=== PATIENT | female | born 1975 | race Two or more races ===

== ENCOUNTER 2024-12-20 16:28 | Outpatient (AMB) | payer OTHER, SELFPAY ==
--- NOTE | 2024-12-20 16:39 | A.OFFPC_ITS ---
Vital Signs 12/20/24 16:43 Height 5 ft 4 in Weight 186 lb BMI 31.9 BP 158/100 H Blood Pressure Location Lt brachial Position Sitting Intake Visit Reasons: Establish care Saddle Stitcher Required: No Accompanied by: Self / Same As Patient Allergies No Known Allergies Allergy (Verified 12/20/24 17:03) Medication List - Last Reconciled 12/20/24 by Joyce Dinh MD losartan 100 mg PO DAILY Tobacco use date assessed: 12/20/24 Dental Screening Dental Screen Date: 12/20/24 Did you have a dental visit in the last 12 months?: Yes Did you have a dental problem in the last 6 months where you did not have access to dental care?: No Was dental information given to patient?: Patient has dentist HPI HPI Comments History of Present Illness Details The patient is a 49-year-old female presenting with a range of medical concerns including hypertension, acid reflux, anxiety, depression, and suspicion of sleep apnea. She reports a long-standing history of hypertension managed with Losartan 100mg, with recent addition of Amlodipine to aid in blood pressure control. The patient has struggled with untreated depression and anxiety, experiencing symptoms like low energy and excessive sleep. She reports excessive daytime sleepiness, particularly when inactive or driving, and breathing interruptions during sleep, which prompts consideration of sleep apnea. Reported acid reflux has been inadequately controlled, with recent symptoms persisting. Despite efforts to lose weight through dieting, she mentions unexplained weight gain and concerns about potential thyroid issues. The patient has not undergone recent screening tests, including mammography or Pap smears, due to insurance constraints, and has expressed a preference for diagnostic evaluations to be conducted within a clinical setting. [facility] Surgical History History of hand surgery History of Family History Father Alzheimer disease Hypertension Mother Hypertension Social History Housing: House Patient Tobacco Use Status: Never used Tobacco e-Cigarette/Vaping Use: Never Used Second Hand Smoke Exposure: No service: No Current occupational status: employed Current occupational exposures/hazards: No Cognitive needs: No Hearing needs: No Vision needs: Yes Questionnaire PHQ-9 Over the last 2 weeks, how often have you been bothered by any of the following problems? 1. Little interest or pleasure in doing things: several days 2. Feeling down, depressed, or hopeless: not at all 3. Trouble falling or staying asleep, or sleeping too much: several days 4. Feeling tired or having little energy: nearly every day 5. Poor appetite or overeating: not at all 6. Feeling bad about yourself - or that you are a failure or have let yourself or your family down: not at all 7. Trouble concentrating on things, such as reading the newspaper or watching television: not at all 8. Moving or speaking so slowly that other people could have noticed. Or the opposite - being so fidgety or restless that you have been moving around a lot more than usual: not at all 9. Thoughts that you would be better off or of hurting yourself in some way: not at all Total score: 5 Depression Screening Interpretation: Positive Depression Screening Follow-up: Existing condition and Follow-up Visit Requested Depression Screening Done: Yes 83318 - PHQ-9 Billing: Yes Source: Developed by Drs. Adis Proctor, Dilcia Hope, Jeet Beck and colleagues, with an educational martha from [employer]. Thrive Questionnaire Date Thrive assessed: 12/20/24 I am a: Patient What is your living situation today?: I have a place to live, but I am worried about losing it in the future Within the past 12 months, did the food you bought not last and you didn't have the money to get more?: Sometimes True Within the past 12 months, did you worry whether your food would run out before you got money to buy more?: Often true Do you have trouble paying for medicines?: No Do you have trouble getting transportation to medical appointments?: No Do you have trouble paying your heating and electricity bill?: Yes Do you have trouble taking care of your child, family member or friend?: No Do you have trouble with day-to-day activities such as bathing, preparing meals, shopping, managing finances, etc.?: No Are you currently unemployed and looking for a job?: No Are you interested in more education?: I choose not to answer this question Please select the resources that you would like help with: None Currently or been in a relationship where the following occur: No concerns reported THRIVE Score: 4 AUDIT C Alcohol Use Questionnaire (AUDIT-C) 1. How often do you have a drink containing alcohol?: 2-4 times a month 2. How many drinks containing alcohol do you have on a typical day when you are drinking?: 1 or 2 3. How often do you have six or more drinks on one occasion?: Less than monthly Total Score: 3 PADMINI-7 AMB Questionnaire PADMINI-7 Date PADMINI - 7 assessed: 12/20/24 Feeling nervous, anxious, or on edge: 3 = Nearly every day Not being able to stop or control worryin = Nearly every day Worrying too much about different things: 3 = Nearly every day Trouble relaxin = Several days Being so restless that it is hard to sit still: 0 = Not at all Becoming easily annoyed or irritable: 3 = Nearly every day Feeling afraid as if something awful might happen: 3 = Nearly every day Total PADMINI-7 score (0-4 normal; 5-9 mild; 10-14 moderate; 15-21 severe): 16 Source: Developed by Drs. Aids Proctor, Dilcia Hope, Jeet Beck and colleagues, with an educational martha from [employer]. PADMINI-7 Assessment Billing PADMINI-7 Assessment Tool: PADMINI-7 Assessment 42404 Review of Systems Const All systems reviewed & are unremarkable except as noted in HPI and below Card Denies chest pain at rest, Denies chest pain with activity, Denies edema, Denies irregular heart rhythm, Denies claudication, Denies dyspnea, Denies dyspnea on exertion, Denies orthopnea, Denies paroxysmal nocturnal dyspnea and Denies slow heart rate Resp Denies cough, Denies dyspnea and Denies dyspnea on exertion GI Denies abdominal pain, Denies change in bowel habits, Denies excessive flatus, Denies nausea and Denies vomiting Denies urinary incontinence, Denies urinary hesitancy and Denies urinary urgency Physical exam (Primary Care) Vital Signs: Last Vital Signs BP 158/100 H 12/20/24 16:43 BMI result Body Mass Index 31.9 BMI Assessment/Plan discussion: High BMI High, discussed plan: lifestyle, weight reduction, dietary and physical activity Tobacco/Smoking Status: Tobacco use Status Tobacco use date assessed 12/20/24 12/20/24 16:50 Patient Tobacco Use Status Never used Tobacco 12/20/24 16:50 e-Cigarette/Vaping Use Never Used 12/20/24 16:50 PHQ-9: PHQ-9 Score PHQ-9: Total score 5 12/20/24 16:50 Depression Screening Interpretation: Positive Depression Screening Follow-up: Existing condition and Follow-up Visit Requested Thrive Assessment: Date of Thrive Assessment Date Thrive assessed 12/20/24 12/20/24 16:41 Currently or been in a relationship where the following occur: No concerns reported Resp Effort & Inspection: normal respiratory effort Auscultation: clear to auscultation bilaterally Cardio Jugular venous distension: no JVD Rate: regular rate Rhythm: regular rhythm Heart sounds: S1 normal heart sound present and S2 normal heart sound present Neuro General: no focal motor deficits Extrem General: Yes full ROM Coding Level of Care Code New Pt Level 4 (35180) Complex EM visit Add On G2211 Diagnoses Essential hypertension I10 Mild recurrent major depression F33.0 PADMINI (generalized anxiety disorder) F41.1 Class 1 obesity with body mass index (BMI) of 31.0 to 31.9 in adult E66.811; Z68.31 Chronic GERD K21.9 Daytime somnolence R40.0 Additional Codes PHQ-9 - 60349 - PHQ-9 Billing: Yes ([id number]) PADMINI-7 Assessment Billing - PADMINI-7 Assessment Tool: PAMDINI-7 Assessment 20654 ([id number]) Time Spent (min) 25 Assessment & Plan Assessment & Plan (1) Essential hypertension: Code(s): I10 - Essential (primary) hypertension Category: Medical (2) Mild recurrent major depression: Code(s): F33.0 - Major depressive disorder, recurrent, mild Category: Medical (3) PADMINI (generalized anxiety disorder): Code(s): F41.1 - Generalized anxiety disorder Category: Medical (4) Class 1 obesity with body mass index (BMI) of 31.0 to 31.9 in adult: Code(s): E66.811 - Obesity, class 1; Z68.31 - Body mass index [BMI] 31.0-31.9, adult Category: Medical (5) Chronic GERD: Code(s): K21.9 - Gastro-esophageal reflux disease without esophagitis Category: Medical (6) Daytime somnolence: Code(s): R40.0 - Somnolence Category: Medical Plan Amlodipine is added alongside existing Losartan for comprehensive blood pressure management, and we will assess her response through mid-week pressure checks. I plan to initiate acid reflux treatment and have arranged for a sleep study to assess potential sleep apnea. Lab work was ordered to evaluate thyroid, cholesterol, and comprehensive metabolic health, considering unexplained weight gain and family history. CRC screening through Cologuard and catch-up mammography and Pap smear will be implemented when she is scheduled and facilitated. Future visits will involve revisiting mental health management and weight control strategies. Patient was informed and verbally consented to the use of an ambient scribe for clinic note documentation during this visit. I discussed the initiation of Amlodipine to aid in hypertension management due to her current reading and the addition of reflux treatment to better manage gastric symptoms. The benefit of a sleep study for her reported sleep disturbances was discussed at length, and the potential use of CPAP if apnea is diagnosed was explained. Lab investigations were outlined, and the rationale for thyroid testing given her weight concerns was provided. Colorectal cancer screening via Cologuard was described, alongside the need for future mammography and Pap smear examinations when feasible. I emphasized regular follow-up for ongoing management. Orders: Orders RT home sleep study Today R40.0 - Somnolence Comprehensive [place]. Panel Fast Today E66.811 - Obesity, class 1, Z68.31 - Body mass index [BMI] 31.0-31.9, adult Thyroid Stimulating Hormone Today E66.811 - Obesity, class 1, Z68.31 - Body mass index [BMI] 31.0-31.9, adult MM tomosynthesis screening BI Today Z12.31 - Encounter for screening mammogram for malignant neoplasm of breast Lipid Panel Today E66.811 - Obesity, class 1, E78.5 - Hyperlipidemia, unspecified, Z68.31 - Body mass index [BMI] 31.0-31.9, adult Complete Blood Count Auto Diff Today E66.811 - Obesity, class 1, Z68.31 - Body mass index [BMI] 31.0-31.9, adult Referrals Counseling Referral F33.0 - Major depressive disorder, recurrent, mild, F41.1 - Generalized anxiety disorder [employer] Referral Z12.4 - Encounter for screening for malignant neoplasm of cervix Open Access Screening Colonoscopy Referral Z12.12 - Encounter for screening for malignant neoplasm of rectum Medications: New amlodipine 2.5 mg PO DAILY 90 days 90 tabs 1RF omeprazole 20 mg PO DAILY 90 days 90 caps 1RF Patient Instructions: - Take Losartan and Amlodipine daily as prescribed for blood pressure management. - Follow dietary recommendations outlined for acid reflux. - Call to schedule a sleep study and complete Cologuard once provided details. - Attend blood draw fasting for all pre-arranged lab tests. - Follow guidelines for mental health assessment and follow-up at check-ins. - Arrange appointments for mammography, Pap smear, and any further consultations as insurance becomes available. - Maintain an activity and diet-based plan for weight management.
[2024-12-20 16:43] VITALS: BP 158/100; BMI 31.9
--- OUTSIDE RECORDS SUMMARY | 2024-12-20 18:18 | XMS_ITS | Patient Health Record ---
Author Organization [facility] Address [address] [place], [place] [id number] Care Team Providers Care Machine Stacker Name Role Phone No, PCP Primary Care Provider Unavailabl e [facility], [facility] Unavailable [phone] Reason For Referral No Information Plan Of Treatment No Information Insurance Providers Payer Name Payer Address Payer Phone Subscriber Number Group Number Insured Name Patient Relationship to Insured Coverage Start Date Coverage End Date [place] Medicaid Standard [address] [place] [address] [id number] Katelynn Rivera Self - patient is the insured 4
== END 2024-12-20 17:15 | disposition home or self-care (01) ==
LOC: HO.HMCH 16:29
PROVIDERS: PCP Internal Medicine; Visit Provider Internal Medicine
DX: I10 Essential (primary) hypertension (principal); F33.0 Major depressive disorder, recurrent, mild; F41.1 Generalized anxiety disorder; E66.811 Obesity, class 1; Z68.31 Body mass index [BMI] 31.0-31.9, adult; K21.9 Gastro-esophageal reflux disease without esophagitis; R40.0 Somnolence

== ENCOUNTER → 2024-12-20 16:28 | Outpatient (BNVA) | payer OTHER, SELFPAY | PROVIDERS: PCP Internal Medicine; Visit Provider Internal Medicine | DX: I10 Essential (primary) hypertension (principal); K21.9 Gastro-esophageal reflux disease without esophagitis; F33.0 Major depressive disorder, recurrent, mild; F41.1 Generalized anxiety disorder; R40.0 Somnolence; E66.811 Obesity, class 1; Z68.31 Body mass index [BMI] 31.0-31.9, adult; Z79.899 Other long term (current) drug therapy | CPT/HCPCS: 96127; 99202 ==

== ENCOUNTER 2025-01-09 08:16 | Outpatient (REF) | payer OTHER, SELFPAY ==
--- OUTSIDE RECORDS SUMMARY | 2025-01-09 08:32 | XMS_ITS | Patient Health Record ---
Author Organization [facility] Address [address] [place], [place] [id number] Care Team Providers Care Medical Appointment Scheduler Name Role Phone NO, PCP Primary Care Provider [phone] [facility], [facility] Unavailable [phone] Reason For Referral No Information Plan Of Treatment No Information Insurance Providers Payer Name Payer Address Payer Phone Subscriber Number Group Number Insured Name Patient Relationship to Insured Coverage Start Date Coverage End Date [place] Medicaid Standard [address] [place] [address] [phone] [id number] Katelynn Rivera Self - patient is the insured 4
[2025-01-09 08:35] LABS: MANUAL DIFF FLAG NO
[2025-01-09 09:06] LABS: Basophils Absolute Auto 0.1 X10*3/uL (0.0-0.2); Eosinophils Absolute Auto 0.2 X10*3/uL (0.0-0.4); Eosinophils Percent Auto 2.3 % (0-4); Hematocrit 35.6 % (37.0-47.0); Hemoglobin 12.2 g/dl (12.0-16.0); Imm Gran Abs Auto 0.02 X10*3/uL (0.00-0.03); Imm Gran Pct Auto 0.3 % (0.0-0.4); Lymphocytes Absolute Auto 3.9 X10*3/uL (1.2-4.9); Lymphocytes Percent Auto 55.8 % (20-40); Mean Corpuscular HGB Conc 34.3 g/dl (31.0-35.0); Mean Corpuscular Hemoglobin 28.8 pg (27.0-33.0); Mean Platelet Volume 9.5 fL (9.4-12.3); Monocytes Absolute Auto 0.6 X10*3/uL (0.1-1.2); Monocytes Percent Auto 8.1 % (2-11); Neutrophils Absolute Auto 2.3 x10*3/uL (2.0-8.3); Neutrophils Percent Auto 32.5 % (45-73); Platelet Count 314 X10*3/uL (160-400); Red Blood Count 4.24 X10*6/uL (4.20-5.50); Red Cell Distribution Width 12.4 % (11.0-16.0)
[2025-01-09 10:00] LABS: Alanine Aminotransferase 34 U/L (0-31); Albumin Level 4.7 g/dL (3.5-5.0); Alkaline Phosphatase 74 U/L (39-117); Anion Gap 12 (12-20); Aspartate Amino Transferase 32 U/L (5-31); Bilirubin Total 0.4 mg/dL (0.0-1.0); Blood Urea Nitrogen 16 mg/dL (9-16); Calcium 9.2 mg/dL (8.4-10.2); Carbon Dioxide 28 mmol/L (22-29); Chloride 108 mmol/L (96-108); Cholesterol 177 mg/dL (<200); Estimated Glomerular Filt Rate > 60; Glucose Fasting 91 mg/dL (60-99); HDL Cholesterol 58 mg/dL (>40); LDL Cholesterol Calculated 108 mg/dL (<100); Sodium 144 mmol/L (135-145); Total Protein 7.7 g/dL (6.5-8.0); Triglycerides 58 mg/dL (<150)
[2025-01-09 10:19] LABS: Thyroid Stimulating Hormone 2.31 uIU/mL (0.32-4.0)
== END 2025-01-09 08:17 | disposition home or self-care (01) ==
LOC: HO.LAB 08:16
PROVIDERS: PCP Internal Medicine; Visit Provider Internal Medicine
DX: E66.811 Obesity, class 1 (principal); Z68.31 Body mass index [BMI] 31.0-31.9, adult; E78.5 Hyperlipidemia, unspecified
CPT/HCPCS: 36415; 80053; 80061; 84443; 85025

== ENCOUNTER 2025-02-20 14:43 | Outpatient (REF) | payer OTHER, SELFPAY ==
--- OUTSIDE RECORDS SUMMARY | 2025-02-20 15:09 | XMS_ITS | Patient Health Record ---
Author Organization [facility] Address [address], [place] [id number] Care Team Providers Care Housing Management Officer Name Role Phone NO, PCP Primary Care Provider [phone] [facility], [facility] Unavailable [phone] Reason For Referral No Information Plan Of Treatment No Information Insurance Providers Payer Name Payer Address Payer Phone Subscriber Number Group Number Insured Name Patient Relationship to Insured Coverage Start Date Coverage End Date [place] Medicaid Standard [address] [place] [address] [id number] Katelynn Rivera Self - patient is the insured 4
--- OUTSIDE RECORDS SUMMARY | 2025-02-20 15:09 | XMS_ITS | Clinical Summary ---
Author Organization [facility] Address [address] [place] [address] Phone Care Team Providers Care Shove Up Name Role Phone Physician, No Pcp Primary Care Provider Unavaila ble Allergies No known active allergies Medications methocarbamoL (ROBAXIN) 750 mg tablet Take 1 tablet (750 mg total) by mouth 4 (four) times a day. 12 each 09/02/2024 Active Active Problems No known active problems Social History Tobacco Use Types Packs/Day Years Used Date Smoking Tobacco: Never Smokeless Tobacco: Never Alcohol Use Standard Drinks/Week Comments Yes 0 (1 standard drink = 0.6 oz pur e alcohol) Comments Unknown Sex and Gender Information Value Date Recorded Sex Assigned at Female 09/02/2024 6:38 AM EST Legal Sex Female 12:24 AM EST Gender Identity Female 09/02/2024 6:38 AM EST Sexual Orientation Not on file Obstetrics History Last Filed Vital Signs Vital Sign Reading Time Taken Comments Blood Pressure 136/99 09/02/2024 9:07 AM EST Pulse 65 09/02/2024 9:07 AM EST Temperature 36.4 C (97.5 F) 09/02/2024 9:07 AM EST Respiratory Rate 18 09/02/2024 9:07 AM EST Oxygen Saturation 100% 09/02/2024 9:07 AM EST Inhaled Oxygen Concentration - - Weight 77.1 kg (170 lb) 09/02/2024 6:58 AM EST Height 157.5 cm (5' 2 ) 09/02/2024 6:58 AM EST Body Mass Index 31.09 09/02/2024 6:58 AM EST Plan of Treatment Health Maintenance Due Date Last Done Comments Breast Cancer Screening 1977 DTaP,Tdap,and Td Vaccines (1 - Tdap) 1996 Hepatitis B Vaccines (1 of 3 - 19+ 3-dose series) 1996 Cervical Cancer Screening: P ap Smear 1998 Colorectal Cancer Screening: Colonoscopy 06/20/2022 HIV Screening 06/20/2022 Hepatitis C Screening 06/20/2022 Social Influencers of Health Screening 06/20/2022 COVID-19 Vaccine (1 - 2023-2 5 season) 2024 Depression Screening 07/18/2024 Influenza Vaccine (#1) 2025 HIB Vaccines Aged Out No longer eligi ble based on patient's age to complete this topic HPV Vaccines Aged Out No longer eligi ble based on patient's age to complete this topic Hepatitis A Vaccines Aged Out No long er eligible based on patient's age to complete this topic IPV Vaccines Aged Out No longer eligi ble based on patient's age to complete this topic MMR Vaccines Aged Out No longer eligi ble based on patient's age to complete this topic Meningococcal ACWY Vaccine Aged Out N o longer eligible based on patient's age to complete this topic Meningococcal B Vaccine Aged Out No l onger eligible based on patient's age to complete this topic Pneumococcal Vaccine: Pediat rics (0 to 5 Years) and At-Risk Patients (6 to 49 Years) Aged Out No longer eligible b ased on patient's age to complete this topic RSV Immunization Patients Un kamala 20 months Aged Out No longer eligible b ased on patient's age to complete this topic Varicella Vaccines Aged Out No longer eligible based on patient's age to complete this topic Insurance [employer] Care Teams Shove Up Relationship Specialty Start Date End Date Physician, No Pcp PCP - General 09/02/24
== END 2025-02-20 14:44 | disposition home or self-care (01) ==
LOC: HO.MAMMO 14:43
PROVIDERS: PCP Internal Medicine; Visit Provider Internal Medicine
DX: Z12.31 Encounter for screening mammogram for malignant neoplasm of breast (principal)
CPT/HCPCS: 77063; 77067

== ENCOUNTER → 2025-02-20 15:00 | Outpatient (BNV) | payer OTHER, SELFPAY | PROVIDERS: PCP Internal Medicine; Visit Provider Internal Medicine | DX: Z12.31 Encounter for screening mammogram for malignant neoplasm of breast (principal) | CPT/HCPCS: 77063; 77067 ==

== ENCOUNTER 2025-04-25 12:37 | Outpatient (AMB) | payer OTHER, SELFPAY ==
[2025-04-25 12:42] VITALS: BP 140/100; PULSE 95; RESP 18; TEMP 36.3; O2SAT 97; BMI 32.5
--- NOTE | 2025-04-25 12:42 | MHC.PC.OV ---
Vital Signs 04/25/25 12:42 Height 5 ft 4 in Weight 189 lb 2 oz BMI 32.5 BP 140/100 H Blood Pressure Location Lt brachial Position Sitting Respiration 18 Pulse 95 Pulse Source Pulse Oximeter Temp 97.3 F Temp Source Temporal Artery Scan Pulse Oximetry (%) 97 Oxygen Delivery Method Room Air Intake Visit Reasons: discuss sleep apnea Pet Caretaker Required: No Accompanied by: Self / Same As Patient Allergies No Known Allergies Allergy (Verified 04/25/25 12:52) Medication List - Last Reconciled 04/25/25 by Joyce Dinh MD amlodipine 2.5 mg PO DAILY 90 days losartan 100 mg PO DAILY omeprazole 20 mg PO DAILY 90 days Tobacco use date assessed: 04/25/25 Dental Screening Dental Screen Date: 04/25/25 Did you have a dental visit in the last 12 months?: No Did you have a dental problem in the last 6 months where you did not have access to dental care?: No Was dental information given to patient?: No HPI HPI Comments History of Present Illness Details The patient is a 49-year-old female presenting for management of hypertension and evaluation of sleep apnea. The patient has a history of essential hypertension, currently managed with losartan and amlodipine. Her blood pressure was recorded at 141 mmHg during the visit. The patient is advised to monitor her blood pressure regularly and follow up in three weeks. The patient reports symptoms suggestive of sleep apnea, including falling asleep in public places when inactive. She has been referred to sleep medicine for further evaluation and management. The patient has a history of depression, for which she is currently receiving therapy. She reports hair loss, which she associates with a previous depressive episode in 2020. Laboratory tests indicated transaminitis, and repeat liver function tests have been ordered. [facility] Surgical History History of hand surgery History of Family History Father Alzheimer disease Hypertension Mother Hypertension Social History Housing: House Patient Tobacco Use Status: Never used Tobacco e-Cigarette/Vaping Use: Never Used Second Hand Smoke Exposure: No service: No Current occupational status: employed Current occupational exposures/hazards: No Cognitive needs: No Hearing needs: No Vision needs: Yes Questionnaire PHQ-9 Over the last 2 weeks, how often have you been bothered by any of the following problems? 1. Little interest or pleasure in doing things: nearly every day 2. Feeling down, depressed, or hopeless: more than half the days 3. Trouble falling or staying asleep, or sleeping too much: several days 4. Feeling tired or having little energy: nearly every day 5. Poor appetite or overeating: several days 6. Feeling bad about yourself - or that you are a failure or have let yourself or your family down: several days 7. Trouble concentrating on things, such as reading the newspaper or watching television: nearly every day 8. Moving or speaking so slowly that other people could have noticed. Or the opposite - being so fidgety or restless that you have been moving around a lot more than usual: several days 9. Thoughts that you would be better off or of hurting yourself in some way: not at all Total score: 15 Depression Screening Interpretation: Positive (no suicidal thoughts) Depression Screening Follow-up: Existing condition, Community Mental Health Worker F/U and Follow-up Visit Requested Depression Screening Done: Yes 36716 - PHQ-9 Billing: Yes Source: Developed by Drs. Adis Proctor, Dilcia Hope, Jeet Beck and colleagues, with an educational martha from [employer]. Thrive Questionnaire Date Thrive assessed: 12/14/24 I am a: Patient What is your living situation today?: I have a place to live, but I am worried about losing it in the future Within the past 12 months, did the food you bought not last and you didn't have the money to get more?: Sometimes True Within the past 12 months, did you worry whether your food would run out before you got money to buy more?: Often true Do you have trouble paying for medicines?: No Do you have trouble getting transportation to medical appointments?: No Do you have trouble paying your heating and electricity bill?: Yes Do you have trouble taking care of your child, family member or friend?: No Do you have trouble with day-to-day activities such as bathing, preparing meals, shopping, managing finances, etc.?: No Are you currently unemployed and looking for a job?: No Are you interested in more education?: I choose not to answer this question Currently or been in a relationship where the following occur: I choose not to answer THRIVE Score: 4 AUDIT C Alcohol Use Questionnaire (AUDIT-C) 1. How often do you have a drink containing alcohol?: Monthly or less 2. How many drinks containing alcohol do you have on a typical day when you are drinking?: 1 or 2 3. How often do you have six or more drinks on one occasion?: Never Total Score: 1 Score Reviewed/Action Taken: No PADMINI-7 AMB Questionnaire PADMINI-7 Date PADMINI - 7 assessed: 12/20/24 Source: Developed by Drs. Adis Proctor, Dilcia Hope, Jeet Beck and colleagues, with an educational martah from [employer]. Review of Systems Const All systems reviewed & are unremarkable except as noted in HPI and below Card Denies chest pain at rest, Denies chest pain with activity, Denies edema, Denies irregular heart rhythm, Denies claudication, Denies dyspnea, Denies dyspnea on exertion, Denies orthopnea, Denies paroxysmal nocturnal dyspnea and Denies slow heart rate Resp Denies cough, Denies dyspnea and Denies dyspnea on exertion GI Denies abdominal pain, Denies change in bowel habits, Denies excessive flatus, Denies nausea and Denies vomiting Denies urinary incontinence, Denies urinary hesitancy and Denies urinary urgency Neuro Denies lack of coordination Physical exam (Primary Care) Vital Signs: Last Vital Signs Temp 97.3 F 04/25/25 12:42 Pulse 95 04/25/25 12:42 Resp 18 04/25/25 12:42 BP 140/100 H 04/25/25 12:42 Pulse Ox 97 04/25/25 12:42 Oxygen Delivery Method Room Air 04/25/25 12:42 BMI result Body Mass Index 32.5 BMI Assessment/Plan discussion: High BMI High, discussed plan: lifestyle, weight reduction, dietary and physical activity Tobacco/Smoking Status: Tobacco use Status Tobacco use date assessed 04/25/25 04/25/25 12:50 Patient Tobacco Use Status Never used Tobacco 04/25/25 12:50 e-Cigarette/Vaping Use Never Used 04/25/25 12:50 PHQ-9: PHQ-9 Score PHQ-9: Total score 15 04/25/25 12:50 Depression Screening Interpretation: Positive (no suicidal thoughts) Depression Screening Follow-up: Existing condition, Community Mental Health Worker F/U and Follow-up Visit Requested Thrive Assessment: Date of Thrive Assessment Date Thrive assessed 12/14/24 04/25/25 12:50 Currently or been in a relationship where the following occur: I choose not to answer Resp Effort & Inspection: normal respiratory effort Auscultation: clear to auscultation bilaterally Cardio Jugular venous distension: no JVD Rate: regular rate Rhythm: regular rhythm Heart sounds: S1 normal heart sound present and S2 normal heart sound present Extrem General: Yes full ROM Coding Level of Care Code Est Pt Level 4 (36267) Complex EM visit Add On G2211 Diagnoses Mild recurrent major depression F33.0 Essential hypertension I10 Chronic GERD K21.9 Transaminitis R74.01 Daytime somnolence R40.0 Hair loss L65.9 Additional Codes PHQ-9 - 98511 - PHQ-9 Billing: Yes ([id number]) Time Spent (min) 21 Assessment & Plan Assessment & Plan (1) Mild recurrent major depression: Code(s): F33.0 - Major depressive disorder, recurrent, mild Category: Medical (2) Essential hypertension: Code(s): I10 - Essential (primary) hypertension Category: Medical (3) Chronic GERD: Code(s): K21.9 - Gastro-esophageal reflux disease without esophagitis Category: Medical (4) Transaminitis: Code(s): R74.01 - Elevation of levels of liver transaminase levels Category: Medical (5) Daytime somnolence: Code(s): R40.0 - Somnolence Category: Medical (6) Hair loss: Code(s): L65.9 - Nonscarring hair loss, unspecified Category: Medical Plan Plan Patient was informed and verbally consented to the use of an ambient scribe for clinic note documentation during this visit. 1. Essential Hypertension The patient's blood pressure is currently managed with losartan and amlodipine, with a recent reading of 141 mmHg. She is advised to monitor her blood pressure regularly and follow up in three weeks to assess the effectiveness of the current regimen. 2. Depression The patient is currently receiving therapy for depression and reports associated hair loss, which she links to a previous depressive episode. 3. Sleep Apnea The patient reports symptoms suggestive of sleep apnea, such as falling asleep in public places when inactive. She has been referred to sleep medicine for further evaluation and management. 4. Transaminitis Laboratory tests indicated transaminitis, and repeat liver function tests have been ordered to monitor the condition. Orders: Orders Liver Panel Today R74.01 - Elevation of levels of liver transaminase levels Hepatitis A,B,C Profile Today R74.01 - Elevation of levels of liver transaminase levels Thyroid Stimulating Hormone Today L65.9 - Nonscarring hair loss, unspecified Gamma Glutamyl Transpeptidase Today R74.01 - Elevation of levels of liver transaminase levels Referrals Sleep Medicine Referral R40.0 - Somnolence Dermatology Referral L65.9 - Nonscarring hair loss, unspecified Medications: New amlodipine 5 mg PO DAILY 90 tabs 1RF 90 days Discontinued amlodipine Discontinued Reason: Patient Completed Course 2.5 mg PO DAILY 90 days 90 tabs 1RF
== END 2025-04-25 13:04 | disposition home or self-care (01) ==
LOC: HO.HMCH 12:38
PROVIDERS: PCP Internal Medicine; Visit Provider Internal Medicine
DX: F33.0 Major depressive disorder, recurrent, mild (principal); I10 Essential (primary) hypertension; K21.9 Gastro-esophageal reflux disease without esophagitis; R74.01 Elevation of levels of liver transaminase levels; R40.0 Somnolence; L65.9 Nonscarring hair loss, unspecified

== ENCOUNTER → 2025-04-25 12:37 | Outpatient (BNVA) | payer OTHER, SELFPAY | PROVIDERS: PCP Internal Medicine; Visit Provider Internal Medicine | DX: I10 Essential (primary) hypertension (principal); G47.30 Sleep apnea, unspecified; F33.0 Major depressive disorder, recurrent, mild; K21.9 Gastro-esophageal reflux disease without esophagitis; R74.01 Elevation of levels of liver transaminase levels; R40.0 Somnolence; L65.9 Nonscarring hair loss, unspecified | CPT/HCPCS: 96127; 99212 ==

== ENCOUNTER 2025-05-03 09:18 | Outpatient (REF) | payer OTHER, SELFPAY ==
[2025-05-03 12:40] LABS: Thyroid Stimulating Hormone 2.51 uIU/mL (0.32-4.0)
[2025-05-03 12:57] LABS: Alanine Aminotransferase 36 U/L (0-31); Albumin Level 4.9 g/dL (3.5-5.0); Alkaline Phosphatase 82 U/L (39-117); Aspartate Amino Transferase 29 U/L (5-31); Total Protein 8.1 g/dL (6.5-8.0)
[2025-05-03 15:18] LABS: Gamma Glutamyl Transpeptidase 81 U/L (7-33)
[2025-05-04 09:35] LABS: HBS Num1 36.75 mIU/mL (0-7.99); HBc Num1 0.05 S/CO (0.00-0.79); HBsAGNum1 0.50 S/CO (0.00-0.99); Hepatitis A Antibody IgM 0.22 Index (0-0.79); Hepatitis B Surface Antigen Negative (Negative); ~HepC Num1 0.14 S/CO (0.00-0.79); ~Hepatitis A Antibody IgM Nonreactive (Nonreactive); ~Hepatitis B Surface Antibody REACTIVE (Nonreactive); ~Hepatitis C Antibody Nonreactive (Nonreactive)
== END 2025-05-03 09:19 | disposition home or self-care (01) ==
LOC: HO.LAB 09:18
PROVIDERS: PCP Internal Medicine; Visit Provider Internal Medicine
DX: R74.01 Elevation of levels of liver transaminase levels (principal); L65.9 Nonscarring hair loss, unspecified; Z11.59 Encounter for screening for other viral diseases
CPT/HCPCS: 36415; 80076; 82977; 84443; 86704; 86706; 86709; 86803; 87340

== ENCOUNTER → 2025-05-16 14:53 | Outpatient (BNVA) | payer OTHER, SELFPAY | PROVIDERS: PCP Internal Medicine | DX: Z01.30 Encounter for examination of blood pressure without abnormal findings (principal) | CPT/HCPCS: 99211 ==

== ENCOUNTER 2025-05-20 14:13 | Outpatient (AMB) | payer OTHER, SELFPAY ==
[2025-05-20 14:35] VITALS: BP 118/60; PULSE 70; RESP 18; TEMP 36.3; O2SAT 100; BMI 32.0
--- NOTE | 2025-05-20 14:35 | A.OFFPC_ITS ---
Vital Signs 05/20/25 14:35 Height 5 ft 4 in Weight 186 lb 8 oz BMI 32.0 BP 118/60 Blood Pressure Location Lt brachial Position Sitting Respiration 18 Pulse 70 Pulse Source Pulse Oximeter Temp 97.3 F Temp Source Temporal Artery Scan Pulse Oximetry (%) 100 Intake Visit Reasons: physical exam Manager Mission Required: No Accompanied by: Self / Same As Patient Allergies No Known Allergies Allergy (Verified 05/20/25 15:16) Medication List - Last Reconciled 05/20/25 by Joyce Dinh MD amlodipine 5 mg PO DAILY 90 days losartan 100 mg PO DAILY omeprazole 20 mg PO DAILY 90 days Tobacco use date assessed: 05/20/25 Dental Screening Dental Screen Date: 05/20/25 Did you have a dental visit in the last 12 months?: Yes Did you have a dental problem in the last 6 months where you did not have access to dental care?: No Was dental information given to patient?: Patient has dentist HPI HPI Comments History of Present Illness Details The patient is a 49-year-old female presenting for an annual physical exam. Her last tetanus vaccine was administered more than 10 years ago. She has a history of hypertension, for which she is prescribed medication, and reports having a high reading on one occasion, although her current reading is normal. Review of prior labs reveals good cholesterol, normal thyroid function on two occasions, and a negative hepatitis panel with immunity to Hepatitis B from vaccination. A possibility of fatty liver has been noted. The patient is due for a colonoscopy. [facility] Surgical History History of hand surgery History of Family History (Updated 05/20/25 @ 15:23 by Joyce Dinh MD) Father Alzheimer disease Hypertension Gastric cancer Mother Hypertension Social History Housing: House Patient Tobacco Use Status: Never used Tobacco e-Cigarette/Vaping Use: Never Used Second Hand Smoke Exposure: No service: No Current occupational status: employed Current occupational exposures/hazards: No Cognitive needs: No Hearing needs: No Vision needs: Yes Questionnaire Thrive Questionnaire Date Thrive assessed: 12/14/24 I am a: Patient What is your living situation today?: I have a place to live, but I am worried about losing it in the future Within the past 12 months, did the food you bought not last and you didn't have the money to get more?: Sometimes True Within the past 12 months, did you worry whether your food would run out before you got money to buy more?: Often true Do you have trouble paying for medicines?: No Do you have trouble getting transportation to medical appointments?: No Do you have trouble paying your heating and electricity bill?: Yes Do you have trouble taking care of your child, family member or friend?: No Do you have trouble with day-to-day activities such as bathing, preparing meals, shopping, managing finances, etc.?: No Are you currently unemployed and looking for a job?: No Are you interested in more education?: I choose not to answer this question Currently or been in a relationship where the following occur: I choose not to answer THRIVE Score: 4 PADMINI-7 AMB Questionnaire PADMINI-7 Date PADMINI - 7 assessed: 12/20/24 Source: Developed by Drs. Adis Proctor, Dilcia Hope, Jeet Beck and colleagues, with an educational martha from [employer]. Review of Systems Const All systems reviewed & are unremarkable except as noted in HPI and below Card Denies chest pain at rest, Denies chest pain with activity, Denies edema, Denies irregular heart rhythm, Denies claudication, Denies dyspnea, Denies dyspnea on exertion, Denies orthopnea, Denies paroxysmal nocturnal dyspnea and Denies slow heart rate Resp Denies cough, Denies dyspnea and Denies dyspnea on exertion GI Denies abdominal pain, Denies change in bowel habits, Denies excessive flatus, Denies nausea and Denies vomiting Neuro Denies lack of coordination Physical exam (Primary Care) Vital Signs: Last Vital Signs Temp 97.3 F 05/20/25 14:35 Pulse 70 05/20/25 14:35 Resp 18 05/20/25 14:35 BP 118/60 05/20/25 14:35 Pulse Ox 100 05/20/25 14:35 BMI result Body Mass Index 32.0 BMI Assessment/Plan discussion: High BMI High, discussed plan: lifestyle, weight reduction, dietary and physical activity Tobacco/Smoking Status: Tobacco use Status Tobacco use date assessed 05/20/25 05/20/25 14:53 Patient Tobacco Use Status Never used Tobacco 05/20/25 14:36 e-Cigarette/Vaping Use Never Used 05/20/25 14:36 Thrive Assessment: Date of Thrive Assessment Date Thrive assessed 12/14/24 05/20/25 14:36 Currently or been in a relationship where the following occur: I choose not to answer Const Orientation/consciousness: patient oriented x3 HENAK Head: Yes normal to inspection, Yes normocephalic and Yes atraumatic Ears: external ears normal Eyes General: appearance normal, both eyes and all related structures Eyelids: Yes eyelids normal Conjunctivae: conjunctivae normal Neck Neck: Yes normal visual inspection and Yes supple Resp Effort & Inspection: normal respiratory effort Auscultation: clear to auscultation bilaterally Cardio Jugular venous distension: no JVD Rate: regular rate Rhythm: regular rhythm Heart sounds: S1 normal heart sound present and S2 normal heart sound present GI Inspection: Yes normal to inspection Palpation (GI): Soft to palpation and nontender Auscultation: normal bowel sounds Skin General skin exam: no rashes or lesions noted Neuro General: patient oriented x3 and no focal motor deficits Extrem General: Yes full ROM Psych Appearance: grossly normal Office Procedures Flu Questionnaire Does the patient have a severe egg allergy?: No Does the patient have severe life threatening allergies?: No Does the patient have a fever or illness today?: No Has the patient ever had Guillain-Ward Syndrome?: No Has the patient ever had any past reaction to a flu shot?: No Immunizations Fluarix [id number] (PF) 45 mcg (15 mcg x 3)/0.5 mL IM syringe Performing Provider: Joyce Dinh MD Performing [facility] [place] [facility] Administered by: MURALI Doan on 05/20/25 15:36 Dose Route Admin Location Dispensed Lot Number Expiration Date [facility] Assistant Customer Service Manager 0.5 mL IM Left Deltoid 0.5 mL [id number] 01/14/26 [id number] [email or web address] VIS Given Date VIS Provided VIS Publication Date 05/20/25 Single Vaccine 24 Eligibility Eligibility Date Funding Source Not [facility] Eligible 05/20/25 Private Boostrix Tdap 2.5 Lf unit-8 mcg-5 Lf/0.5 mL intramuscular syringe Performing Provider: Joyce Dinh MD Performing Location[facility] [place] [facility] Administered by: MURALI Doan on 05/20/25 15:36 Dose Route Admin Location Dispensed Lot Number Expiration Date NDC Assistant Customer Service Manager 0.5 mL IM Left Deltoid 0.5 mL [id number] 10/12/27 [id number] [employer] Total Dispensed Waste 0.5 mL 0 % VIS Given Date VIS Provided VIS Publication Date 05/20/25 Single Vaccine 21 Eligibility Eligibility Date Funding Source Not [facility] Eligible 05/20/25 Private Coding Level of Care Code Est Pt Prev Care 40-64y(04409) Diagnoses Physical exam Z00.00 Time Spent (min) 30 Assessment & Plan Assessment & Plan (1) Physical exam: Code(s): Z00.00 - Encounter for general adult medical examination without abnormal findings Category: Medical Plan Plan 1. Encounter for general adult medical examination without abnormal findings Z00.00 The patient's lab results were reviewed, including good cholesterol and normal thyroid function. A Tdap vaccine is indicated as her last dose was over 10 years ago, and an influenza vaccine will also be administered. A referral for a colonoscopy for cancer screening will be provided. Orders: Orders TDaP Immunization Today Z23 - Encounter for immunization Influenza [id number] Immunization Today Z23 - Encounter for immunization Referrals Open Access Screening Colonoscopy Referral Z12.12 - Encounter for screening for malignant neoplasm of rectum
== END 2025-05-20 15:38 | disposition home or self-care (01) ==
LOC: HO.HMCH 14:14
PROVIDERS: PCP Internal Medicine; Visit Provider Internal Medicine
DX: Z23 Encounter for immunization (principal); Z00.00 Encounter for general adult medical examination without abnormal findings

== ENCOUNTER → 2025-05-20 14:13 | Outpatient (BNVA) | payer OTHER, SELFPAY | PROVIDERS: PCP Internal Medicine; Visit Provider Internal Medicine | DX: Z00.00 Encounter for general adult medical examination without abnormal findings (principal); I10 Essential (primary) hypertension; Z23 Encounter for immunization | CPT/HCPCS: 90471; 90472; 90656; 90715; 99396 ==

== ENCOUNTER 2025-05-30 13:48 | Outpatient (AMB) | payer OTHER, SELFPAY ==
--- NOTE | 2025-05-30 13:58 | A.OFFVIS_ITS ---
Vital Signs 05/30/25 14:02 Height 5 ft 4 in Weight 190 lb 2 oz BMI 32.6 BP 122/84 Blood Pressure Location Lt brachial Position Sitting Pulse 94 Pulse Source Pulse Oximeter Pulse Oximetry (%) 98 Oxygen Delivery Method Room Air Intake Visit Reasons: INP-Somnolence (CONF.) Intake Note: Patient presents BUCKET CHUCKER Somnolence. She reports excessive daytime sleepiness, particularly when inactive or driving, and breathing interruptions during sleep, which prompts consideration of sleep apnea. Patient states hard time falling asleep/staying asleep. Goes to bed 12am wakes up at 5am. Wakes up 4-5times a night. Snoring/apnea/gasping. No naps. Headaches last all day. No history of sleep studies. Shearing Machine Operator Services: Shearing Machine Operator Present Shearing Machine Operator Name: Maria Del Carmen [email or web address] Information Interpreted: non-clinical & clinical Allergies No Known Allergies Allergy (Verified 05/30/25 14:04) HPI Comments Details: 49 year old Bengali speaking female presents for an evaluation of SORAYA. Shearing Machine Operator on IPAD helps with history taking. She has difficulty with falling asleep and staying asleep, has multiple arousals with snoring, and gasping for air. She wakes up with morning headaches and sinus headaches which last all day. She takes tylenolol sometimes it helps. She has bruxism, clenching her jaws and pain. She has acid reflux managed with omeprazole. Her BP is controlled with 2 meds. She has anxiety and depression sees her therapist 1x a week. She has RLS with numbness, pins, needles in lower extremities l>r. and sciatica. Has tendonitis r elbow and paresthesias denies CTS. She says memory is poor, forgets many things, like names, tasks, can not retain information for over a year now. She gets lost when driving, and in conversations will lose focus easily. She walks into a room and is unsure why she is there. Mood and diet are stable. She walks daily stays active and hydrates. She denies cigarettes, MJ, edibles, and alcohol socially. FH + dementia father at 90. FH + SORAYA 2 brothers 53, 51. [facility] Surgical History History of hand surgery History of Family History Father Alzheimer disease Hypertension Gastric cancer Mother Hypertension Social History Housing: House Patient Tobacco Use Status: Never used Tobacco e-Cigarette/Vaping Use: Never Used Second Hand Smoke Exposure: No service: No Current occupational status: employed Current occupational exposures/hazards: No Cognitive needs: No Hearing needs: No Vision needs: Yes Physical Exam Vital Signs: Last Vital Signs Pulse 94 05/30/25 14:02 BP 122/84 05/30/25 14:02 Pulse Ox 98 05/30/25 14:02 Oxygen Delivery Method Room Air 05/30/25 14:02 BMI result Body Mass Index 32.6 Const General: cooperative, comfortable and no acute distress Nutritional Appearance: overweight Orientation/consciousness: patient oriented x3 Limitations: language barrier HEENT Face and sinus: Yes face symmetric Teeth and gingiva: other (mallampti score is 4) Eyes Pupils: Equal, round and reactive pupils present Neck Neck: Yes full ROM Resp Effort & Inspection: able to speak in complete sentences Neuro Other: r. u extremity tremors General: patient oriented x3 and moves all extremities Cranial nerves: Yes Equal, round and reactive pupils present, Yes Normal accommodation reflex present, Yes Normal facial strength present, Yes Midline tongue present, Yes Ability to bilaterally rotate head present and Yes Ability to bilaterally elevate shoulders present Cognition (Neuro): normal cognition Gait exam (Neuro): Normal gait present Motor exam (neuro): 5/5 motor strength present throughout and Normal motor muscle tone present throughout Psych Appearance: grossly normal Affect: normal affect Thought process: Normal thought process present Thought content: Normal thought content present Assessment & Plan Assessment & Plan (1) Excessive daytime sleepiness: Code(s): G47.19 - Other hypersomnia Category: Medical (2) Daytime somnolence: Code(s): R40.0 - Somnolence Category: Medical (3) Chronic GERD: Code(s): K21.9 - Gastro-esophageal reflux disease without esophagitis Category: Medical Plan HST r/o soraya Gerd continue 20mg po omeprazole Labs request from pcp. PE r u e [facility] November 2022 - tendonitis /denies CTS declines PT today. f/u in 3 monts Orders: Orders RT home sleep study 05/30/25 G47.19 - Other hypersomnia Patient Instructions: Please complete the following fasting labs to rule out deficiencies. CBC/CMP/ B12/ Vit D/ TSH/ Homocysteine and MMA/ Ferritin. Coding Level of Care Code New Pt Level 4 (04285) Diagnoses Excessive daytime sleepiness G47.19 Daytime somnolence R40.0 Chronic GERD K21.9 Sleep Questionnaire Difficulty falling asleep: Yes Difficulty staying asleep?: Yes Number of arousals: 4-5 Snoring: Yes Witnessed apneas: Yes Gasping arousals: Yes Nocturia: Yes GERD: Yes Vivid dreams: Yes Acting out dreams: Yes (punching) Abnormal behavior in sleep: No Abnormal movements in sleep: Yes (sleep talking) Morning headaches: Yes Excessive daytime sleepiness: Yes Daytime naps: No Restless legs: Yes (l. leg sciatica ) Hallucinations: No Sleep paralysis: Yes Drop attacks: No Sleep Study: No CPAP: No
[2025-05-30 14:02] VITALS: BP 122/84; PULSE 94; O2SAT 98; BMI 32.6
--- OUTSIDE RECORDS SUMMARY | 2025-05-30 17:14 | XMS_ITS | Patient Health Record ---
Author Organization [facility] Address [address] [place] [address] Care Team Providers Care Joss House Keeper Name Role Phone NO, PCP Primary Care Provider [facility] Unavailable [phone] Reason For Referral No Information Plan Of Treatment No Information Insurance Providers Payer Name Payer Address Payer Phone Subscriber Number Group Number Insured Name Patient Relationship to Insured Coverage Start Date Coverage End Date [place] Medicaid Standard [address] [place] [address] [id number] Katelynn Rivera Self - patient is the insured 4
== END 2025-05-30 14:41 | disposition home or self-care (01) ==
LOC: HO.HSMS 13:48
PROVIDERS: PCP Internal Medicine; Visit Provider Physician Assistant Medical
DX: G47.19 Other hypersomnia (principal); R40.0 Somnolence; K21.9 Gastro-esophageal reflux disease without esophagitis
CPT/HCPCS: 99204

== ENCOUNTER → 2025-05-30 13:48 | Outpatient (BNVA) | payer OTHER, SELFPAY | PROVIDERS: PCP Internal Medicine; Visit Provider Physician Assistant Medical | DX: K21.9 Gastro-esophageal reflux disease without esophagitis (principal); R40.0 Somnolence; G47.19 Other hypersomnia | CPT/HCPCS: 99202 ==

== ENCOUNTER 2025-07-12 14:08 | Outpatient (REF) | payer OTHER, SELFPAY ==
[2025-07-13 09:48] LABS: Bacterial Vaginosis PCR NEGATIVE (Negative); Candida Group PCR NOT DETECTED (Not Detect); Candida glab krusei PCR NOT DETECTED (Not Detect); Trichomonas vaginalis PCR NOT DETECTED (Not Detect)
== END 2025-07-12 14:09 | disposition home or self-care (01) ==
LOC: HO.LAB 14:08
PROVIDERS: PCP Internal Medicine; Visit Provider Advanced Practice Midwife
DX: Z01.419 Encounter for gynecological examination (general) (routine) without abnormal findings (principal); L75.0 Bromhidrosis; Z20.2 Contact with and (suspected) exposure to infections with a predominantly sexual mode of transmission; Z12.39 Encounter for other screening for malignant neoplasm of breast
CPT/HCPCS: 81515; 87086; 87626

== ENCOUNTER 2025-07-12 14:58 | Outpatient (REF) | payer OTHER, SELFPAY | END 2025-07-12 14:59 | disposition home or self-care (01) | LOC: HO.LNP 14:58 | PROVIDERS: Visit Provider Advanced Practice Midwife | DX: Z01.419 Encounter for gynecological examination (general) (routine) without abnormal findings (principal); Z11.3 Encounter for screening for infections with a predominantly sexual mode of transmission; R10.20 Pelvic and perineal pain unspecified side; L75.0 Bromhidrosis | CPT/HCPCS: 88175 ==